=== PATIENT | female | born 1940 | race Caucasian/White ===

== ENCOUNTER → 2016-11-27 | Outpatient (CLI) | payer OTHER ==
[~2016-11-27] MED LIST: AMLODIPINE BESYL5 MG PO; ASPIRIN PO; ATORVASTATIN CA80 MG PO; CERTAGEN PO; CLOPIDOGREL75 MG PO; FISH OIL 1,0001 CAP PO; LIPITOR PO; LISINOPRIL PO; LISINOPRIL10 MG PO; LORTAB 7.5-5001 TAB PO; VICODIN 5/1 TAB 5/50 PO
--- NOTE | ~2016-11-27 | MY11 ---
[facility] A Service of [facility] RADIOLOGY TEXT RESULTS PATIENT: BJ BRADSHAW LOCATION: [facility] : 40 UNIT #: [id number] AGE: [address]: Carolina Stevens MD SEX: F ORDER DR: [id number] [facility] [address] [place], [place] [address] [id number] O MR#: [id number] Acc #: [id number] NAME: BJ BRADSHAW : 1940 SEX: F STUDY DATE/TIME: 11/27/2016 11:49 UNIT: [facility] ROOM: STUDY DESCRIPTION: MY Mammogram Screening Dig [place] Attending Physician: Carolina Stevens M.D. Ordering Physician: Carolina Stevens M.D. Primary Care Physician: Carolina Stevens M.D. MEDICAL IMAGING REPORT This report is preliminary unless electronic signature is present EXAM Bilateral digital screening mammogram with CAD. INDICTIONS Routine screening with no complaints and no family history of breast cancer. Personal history of breast cancer on left side with lumpectomy. COMPARISON: 11/21/15 MLO and CC views of each breast were obtained. The exam was reviewed with an FDA-approved CAD. The left breast is slightly smaller than the right due to the lumpectomy. There are no masses or abnormal calcifications. There has been no change. IMPRESSION No change and no evidence of malignancy. Patients over the age of 40 are entered into a reminder system with target due date for the next mammogram. A result letter will also be sent to the patient. BIRADS: 1 - negative Dictated by... Kana Larkin M.D. THIS IS AN ELECTRONICALLY VERIFIED REPORT Kana Larkin M.D. at 11/27/2016 3:25 PM JOSE M/hernesto TD: 11/27/2016 15:02 [facility] A Service [facility] RADIOLOGY TEXT RESULTS PATIENT: BJ BRADSHAW LOCATION: [facility] : 40 UNIT #: [id number] AGE: [address]: Carolina Stevens MD SEX: F ORDER DR: JOB #: [id number] MEDICAL IMAGING REPORT COPY
== END | disposition home or self-care (01) ==
LOC: CWCC 11:29
DX: Z12.31 Encounter for screening mammogram for malignant neoplasm of breast (principal); Z85.3 Personal history of malignant neoplasm of breast; Z98.890 Other specified postprocedural states
CPT/HCPCS: G0202